=== PATIENT | female | born 1975 | race Hispanic/Latino ===

== ENCOUNTER 2022-12-07 13:48 | Observation (INO) | payer OTHER ==
[~2022-12-07] VITALS: Ht 160 cm; Wt 63.9 kg
[2022-12-07 15:42] LABS: BASOPHILS # (AUTO) 0.04 K/uL (0.00-0.20); BASOPHILS % (AUTO) 0.5 % (0.0-5.0); EOSINOPHILS # (AUTO) 0.32 K/uL (0.00-0.70); EOSINOPHILS % (AUTO) 3.9 % (0.0-8.0); HEMATOCRIT 28.4 % (36-48); IMMATURE GRANULOCYTE ABSOLUTE 0.02 K/uL (0-1); LYMPHOCYTES # (AUTO) 0.8 K/uL (1.0-4.8); LYMPHOCYTES % (AUTO) 9.5 % (21.0-51.0); MEAN CORPUSCULAR HEMOGLOBIN 34.3 pg (27.0-33.0); MEAN CORPUSCULAR HGB CONC 33.5 g/dL (32.0-36.0); MEAN CORPUSCULAR VOLUME 102.5 fL (79-99); MONOCYTES # (AUTO) 0.7 K/uL (0.1-1.0); MONOCYTES % (AUTO) 8.9 % (3.0-13.0); NEUTROPHILS # (AUTO) 6.4 K/uL (1.8-7.7); PLATELET COUNT (AUTO) 125 K/uL (130-400); RED BLOOD CELL COUNT(AUTO) 2.77 MIL/uL (4.00-5.50); RED CELL DISTRIBUTION WIDTH 20.3 % (11.0-15.5); WHITE BLOOD COUNT (AUTO) 8.3 K/uL (4.8-10.8)
[2022-12-07 15:53] LABS: PROTHROMBIN TIME 11.6 SEC (9.6-11.6)
[2022-12-07 15:54] LABS: PARTIAL THROMBOPLASTIN TIME 31.8 SEC (26.3-35.5)
[2022-12-07 15:57] LABS: CREATININE 5.9 mg/dL (0.5-1.5); POTASSIUM 3.1 mmol/L (3.5-5.1)
[2022-12-07 16:01] LABS: ALBUMIN 2.5 g/dL (3.5-5.0); BILIRUBIN,TOTAL 1.8 mg/dL (0.2-1.0)
[2022-12-07 21:25] VITALS: BP 105/69; PULSE 93; RESP 22; O2SAT 98
[2022-12-08] VITALS: BP 97/54; PULSE 89; RESP 22
[2022-12-08 04:00] VITALS: BP 92/54; PULSE 86; RESP 22
[2022-12-08] MEDS: INSULIN HUMULIN R 100 UNIT/ML 3ML SQ SCH ×2 (06:53→11:30)
[2022-12-08 08:00] VITALS: BP 91/58; PULSE 90; RESP 18; O2SAT 98
[2022-12-08] MEDS ORDERED: ALBUMIN (HUMAN) 25% 300 ML IV ONE (09:29)
[2022-12-08] MEDS ORDERED: MIDODRINE HCL 5 MG TABLET PO SCH (12:00)
[2022-12-08 13:38] LABS: BODY FLUID RBC 49 /cu. mm.; BODY FLUID WBC 89 /cu. mm.
[2022-12-08 14:00] LABS: APPEARANCE BODY FLUID CLEAR (CLEAR); COLOR,BODY FLUID YELLOW (LT YELLOW); SPECIMENTYPE,BODY FLUID ASCITES; TOTAL VOLUME,BODY FLUID 14000 mL
[2022-12-08 14:29] LABS: BF LYMPHOCYTE 57 %; BF MESOTHELIAL 24 %; BF MONOCYTE 15 %; BF TOTAL CELLS COUNTED 100
== END 2022-12-08 15:30 | disposition home or self-care (01) ==
LOC: EDH 13:48 → EDHIP 18:11 → 3CH 21:23
PROVIDERS: ADMIT Internal Medicine; ATTEND Internal Medicine
DX: K74.60 Unspecified cirrhosis of liver (principal); R18.8 Other ascites; I95.9 Hypotension, unspecified; I12.0 Hypertensive chronic kidney disease with stage 5 chronic kidney disease or end stage renal disease; E11.22 Type 2 diabetes mellitus with diabetic chronic kidney disease; N18.6 End stage renal disease; E78.00 Pure hypercholesterolemia, unspecified; E11.42 Type 2 diabetes mellitus with diabetic polyneuropathy; J98.11 Atelectasis; Z79.899 Other long term (current) drug therapy; Z99.2 Dependence on renal dialysis
CPT/HCPCS: 99285; 80053; 82140; 85025; 85610; 85730; 36415; 71045; 93005; 96365; 89051; 87071; 87077; 87186; 87205; 82948; 49083; G0378 ×21; P9046; C1729